=== PATIENT | male | born 1975 | race Caucasian/White ===

== ENCOUNTER 2017-04-20 10:37 | Emergency (ER) | payer OTHER ==
--- NOTE | 2017-04-20 11:22 | ED NURSING NOTES ---
Clinical Report - Nurses [facility] [address] [place] [address] 04/20/2017 10:38 Patient: AB CRUZ TRIAGE Triage time 1045. Acuity: LEVEL 4. Chief Complaint: (Pt in after doing heavy lifting at work and had a hernia develope rt groin area. Pt states pain and swelling were worse on and --but is less painful and not protruding as far). 10:45. --11:01 Keke Vergara R.N. 10:45 04/20/17. BP: 128/78. HR: 61. RR: 18. O2 saturation: 100%. Temp: 98.2 F. Pain level now: 05/21. --11:01 Keke Vergara R.N. Weight: 89.8 kg stated. Height/Length: 64 inches Per Patient. BMI: 34. --10:57 Keke Vergara R.N. Medications ASA Oral 81mg daily . --11:02 Keke Vergara R.N. Lipitor Oral 100mg, daily. --11:02 Keke Vergara R.N. Vit d. --11:03 Keke Vergara R.N. Naproxen Oral 500 mg, 2x a day as needed (uses 2-3 x/week ). --11:03 Keke Vergara R.N. Allergies Ibuprofen. (facial swelling (as a child) ) --11:02 Keke Vergara R.N. History Arrived by private vehicle. Historian: patient. Unaccompanied. Primary physician (maria teresa). Onset. (Sunday). SURGERY HX: No history of previous surgery. SOCIAL HX: Former smoker (quit 5 years). Alcohol use. (quit 3 years ago). History of drug use. (quit 15 years ago). --11:01 Keke Vergara R.N. PROBLEMS: Lumbar Strain. Back Pain. Heart Murmur. Hypertension. --11:01 Keke Vergara R.N. ADDITIONAL SURGERIES: no known surgeries. Interventions ID band on patient. To treatment room. --11:01 Keke Vergara R.N. PHYSICAL ASSESSMENT 10:45. Ambulatory to room. Patient gowned. GENERAL / NEURO / PSYCH: Alert. Oriented X 4. Appears in pain. RESPIRATORY: Respirations not labored. CVS: Capillary refill less than 2 seconds. GI / : ( right groin area swelling). SKIN: Skin is warm and dry. --11:05 Keke Vergara R.N. NURSING PROGRESS NOTES 10:45. Patient gowned. Head of bed elevated. Reassurance given. Patient identifiers checked. Call light placed in reach. Side rails up. Bed placed in lowest position. Patient ready for evaluation- chart flagged. --11:04 Keke Vergara R.N. DISPOSITION / DISCHARGE 11:35. Condition at departure: unchanged and stable. No learning barriers present. Discharge instructions provided and reviewed with the patient. Reviewed medication(s) (percocet). Reviewed referral to a surgeon. Patient verbalized understanding. Written instructions provided in Lithuanian. The patient was discharged home and unaccompanied at time of discharge. He left the Emergency Department ambulatory and via private vehicle. Patient driving. --11:43 Keke Vergara R.N. 11:41 04/20/17. BP: 111/76. HR: 58. RR: 16. O2 saturation: 100%. Temp: deferred. Pain level now: 05/21. --11:43 Keke Vergara R.N. Departure time: 1135. --11:43 Keke Vergara R.N. Locked/Released at 04/20/2017 11:43 by Keke Vergara R.N.
--- NOTE | 2017-04-20 11:22 | ED CLINICAL REPORT ---
Clinical Report - Physicians/Mid Levels [facility] [address] [place] [address] 04/20/2017 10:38 Patient: AB CRUZ Time Seen: 11:10. Arrived- By private vehicle. Historian- patient. HISTORY OF PRESENT ILLNESS Chief Complaint: ABDOMINAL PAIN. At its maximum, severity described as moderate. When seen in the E.D., severity described as moderate. Modifying factors- worsened by movement. Relieved by rest. (lifting heavy objects seems to have precipitated his symptoms). It is described as "pain" and dull. No radiation. It is described as located in the right pelvis. This started several days ago and is still present. It was gradual in onset and has been waxing/waning. No nausea, vomiting or diarrhea. (Pt in after doing heavy lifting at work and had a hernia develope rt groin area. Pt states pain and swelling were worse on Mond and Tues--but is less painful and not protruding as far). Similar symptoms previously: None. Recent medical care: The patient was seen recently in a clinic. Seen for similar symptoms. Diagnosis: (hernia). ( Seen at [facility] and diagnosed with hernia and has out pt ultrasound ordered). REVIEW OF SYSTEMS No constipation, black stools, hematemesis, difficulty with urination or pain with urination. No urinary frequency, bloody stools, fever, headache or sore throat. No chest pain, difficulty breathing, cough or back pain. All systems otherwise negative, except as recorded above. PAST HISTORY PCP: Dr Peña PROBLEMS: Lumbar Strain. Back Pain. Heart Murmur. Hypertension. Surgeries: No history of previous surgery. SOCIAL HISTORY Former smoker, end date 2011. Alcohol use. (quit 3 years ago). History of drug use quit 15 years ago. ADDITIONAL NOTES The nursing notes have been reviewed. PHYSICAL EXAM Vital Signs: 04/20/2017 10:45 BP: 128/78. HR: 61. RR: 18. O2 saturation: 100%. Temp: 98.2 F. Pain level now: 710. Appearance: Alert. Oriented X3. No acute distress. Eyes: Pupils equal, round and reactive to light. Eyes normal inspection. No scleral icterus or pale conjunctivae. ENT: Nose normal. Pharynx normal. Neck: Normal inspection. Neck supple. CVS: Normal heart rate and rhythm. Heart sounds normal. Pulses normal. Respiratory: No respiratory distress. Breath sounds normal. Abdomen: Soft. Mild tenderness in the right lower quadrant. No organomegaly. Small, tender mass present in the right lower quadrant (consistent with hernia - completely reducible; no skin erythema or ecchymosis). No pulsatile mass present. No rebound tenderness or guarding. Back: Normal inspection. No CVA tenderness. Skin: Skin warm and dry. Normal skin color. No rash. Normal skin turgor. Extremities: Extremities exhibit normal ROM. No lower extremity edema. Neuro: Oriented X 3. No motor deficit. No sensory deficit. LABS, X-RAYS, AND EKG Pulse Oximetry: 04/20/2017 10:45 O2 saturation: 100%. (FIO2 - room air). Interpretation: normal. PROGRESS AND PROCEDURES Course of Care: Most c/w nonincarcerated, nonstrangulated hernia. No indication for emergent surgery now. He has an out pt ultrasound scheduled by his pcp. I will provide pain relief (states currently pain is much better than several days ago and that "vicodin causes a headache", but requests prn pain med - percocet). I will refer to general surgery for out pt eval and keep off work for several days. Pt given signs and symptoms to watch for and return. Patient/family counseled. Old ED records reviewed. Disposition: Discharged. Condition: stable and improved. CLINICAL IMPRESSION Reducible right inguinal hernia. No recurrent hernia, obstruction or gangrene. INSTRUCTIONS Rest. Do not work for three days. Drink plenty of fluids. Warnings: Further evaluation is necessary in order to conduct further tests (You should have your ultrasound as ordered by your doctor). It is very important to follow up with a physician. SEDATIVE MEDICATION: You were given sedative medication during your visit. Do not drive or operate dangerous machinery. CONTROLLED SUBSTANCE WARNINGS. GENERAL WARNINGS: Return or contact your physician immediately if your condition worsens or changes unexpectedly, if not improving as expected, or if other problems arise. Your Current Medications: CONTINUE TAKING THE FOLLOWING MEDICATIONS: ASA Oral : 81mg daily. Lipitor Oral : 100mg daily. Naproxen Oral : 500 mg 2x a day, prn, uses 2-3 x/week. Vit d*. Prescription Medications: Percocet 5 mg/325 mg: take 1 tablet orally every 12 hours. Dispense five (5). No refill. Substitution is permissible. OTC Medications: Take acetaminophen (Tylenol, Datril, etc.) according to label instructions. Available over the counter. Follow-up with: Agustin Medina MD, General Surgeon, , [facility], [address] [place] [phone], [place] [phone] Follow up. Call for the next available appointment. Follow-up with: [facility], , , [address], , [place] [phone] Follow up. Call for the next available appointment. (Electronically signed by Agustin Andrew DO 04/20/2017 14:35)
--- NOTE | 2017-04-20 11:22 | ED CLINICAL REPORT ---
Clinical Report - Physicians/Mid Levels [facility] [address] [place] [address] 04/20/2017 10:38 Patient: AB CRUZ Time Seen: 11:10. Arrived- By private vehicle. Historian- patient. HISTORY OF PRESENT ILLNESS Chief Complaint: ABDOMINAL PAIN. At its maximum, severity described as moderate. When seen in the E.D., severity described as moderate. Modifying factors- worsened by movement. Relieved by rest. (lifting heavy objects seems to have precipitated his symptoms). It is described as "pain" and dull. No radiation. It is described as located in the right pelvis. This started several days ago and is still present. It was gradual in onset and has been waxing/waning. No nausea, vomiting or diarrhea. (Pt in after doing heavy lifting at work and had a hernia develope rt groin area. Pt states pain and swelling were worse on Mond and Tues--but is less painful and not protruding as far). Similar symptoms previously: None. Recent medical care: The patient was seen recently in a clinic. Seen for similar symptoms. Diagnosis: (hernia). ( Seen at [facility] and diagnosed with hernia and has out pt ultrasound ordered). REVIEW OF SYSTEMS No constipation, black stools, hematemesis, difficulty with urination or pain with urination. No urinary frequency, bloody stools, fever, headache or sore throat. No chest pain, difficulty breathing, cough or back pain. All systems otherwise negative, except as recorded above. PAST HISTORY PCP: Dr Peña PROBLEMS: Lumbar Strain. Back Pain. Heart Murmur. Hypertension. Surgeries: No history of previous surgery. SOCIAL HISTORY Former smoker, end date 2011. Alcohol use. (quit 3 years ago). History of drug use quit 15 years ago. ADDITIONAL NOTES The nursing notes have been reviewed. PHYSICAL EXAM Vital Signs: 04/20/2017 10:45 BP: 128/78. HR: 61. RR: 18. O2 saturation: 100%. Temp: 98.2 F. Pain level now: 710. Appearance: Alert. Oriented X3. No acute distress. Eyes: Pupils equal, round and reactive to light. Eyes normal inspection. No scleral icterus or pale conjunctivae. ENT: Nose normal. Pharynx normal. Neck: Normal inspection. Neck supple. CVS: Normal heart rate and rhythm. Heart sounds normal. Pulses normal. Respiratory: No respiratory distress. Breath sounds normal. Abdomen: Soft. Mild tenderness in the right lower quadrant. No organomegaly. Small, tender mass present in the right lower quadrant (consistent with hernia - completely reducible; no skin erythema or ecchymosis). No pulsatile mass present. No rebound tenderness or guarding. Back: Normal inspection. No CVA tenderness. Skin: Skin warm and dry. Normal skin color. No rash. Normal skin turgor. Extremities: Extremities exhibit normal ROM. No lower extremity edema. Neuro: Oriented X 3. No motor deficit. No sensory deficit. LABS, X-RAYS, AND EKG Pulse Oximetry: 04/20/2017 10:45 O2 saturation: 100%. (FIO2 - room air). Interpretation: normal. PROGRESS AND PROCEDURES Course of Care: Most c/w nonincarcerated, nonstrangulated hernia. No indication for emergent surgery now. He has an out pt ultrasound scheduled by his pcp. I will provide pain relief (states currently pain is much better than several days ago and that "vicodin causes a headache", but requests prn pain med - percocet). I will refer to general surgery for out pt eval and keep off work for several days. Pt given signs and symptoms to watch for and return. Patient/family counseled. Old ED records reviewed. Disposition: Discharged. Condition: stable and improved. CLINICAL IMPRESSION Reducible right inguinal hernia. No recurrent hernia, obstruction or gangrene. INSTRUCTIONS Rest. Do not work for three days. Drink plenty of fluids. Warnings: Further evaluation is necessary in order to conduct further tests (You should have your ultrasound as ordered by your doctor). It is very important to follow up with a physician. SEDATIVE MEDICATION: You were given sedative medication during your visit. Do not drive or operate dangerous machinery. CONTROLLED SUBSTANCE WARNINGS. GENERAL WARNINGS: Return or contact your physician immediately if your condition worsens or changes unexpectedly, if not improving as expected, or if other problems arise. Your Current Medications: CONTINUE TAKING THE FOLLOWING MEDICATIONS: ASA Oral : 81mg daily. Lipitor Oral : 100mg daily. Naproxen Oral : 500 mg 2x a day, prn, uses 2-3 x/week. Vit d*. Prescription Medications: Percocet 5 mg/325 mg: take 1 tablet orally every 12 hours. Dispense five (5). No refill. Substitution is permissible. OTC Medications: Take acetaminophen (Tylenol, Datril, etc.) according to label instructions. Available over the counter. Follow-up with: Agustin Medina MD, General Surgeon, , [facility], [address] [place] [phone], [place] [phone] Follow up. Call for the next available appointment. Follow-up with: [facility], , , [address], , [place] [phone] Follow up. Call for the next available appointment. (Electronically signed by Agustin Andrew DO 04/20/2017 14:35)
--- NOTE | 2017-04-20 14:35 | ED MAR SUMMARY ---
..... Medication Administration Record [facility] [address], [place] [id number] Patient: ANTHONY AB Sina Visit ID: [id number] 42y, M Weight: 89.8 kg Height/Length: 64 in BMI: 34 ALLERGIES: Ibuprofen
--- NOTE | 2017-04-20 14:35 | ED MED RECONCILIATION SUMMARY ---
Patient: AB CRUZ Medication Reconciliation Report [facility] VisitID: [id number] [address] [place] [address] 42y, M Registration Date/Time: 04/20/2017 Weight: 89.8 kg Height/Length: 64 in. BMI: 34.0 ALLERGIES: Ibuprofen The patient's Home Medications are listed below: CONTINUE TAKING THE FOLLOWING MEDICATIONS: ASA Oral 81mg daily Lipitor Oral 100mg, daily Naproxen Oral 500 mg, 2x a day, uses 2-3 x/week Vit d The source(s) of the original Home Medication information: Not obtained. The following Medications were given to the patient in the Emergency Department: None. The following Medications were prescribed to the patient: Take acetaminophen (Tylenol, Datril, etc.) according to label instructions. Available over the counter. -- Agustin Andrew DO Percocet 5 mg/325 mg: take 1 tablet orally every 12 hours. Dispense five (5). No refill. Substitution is permissible. -- Agustin Andrew DO
--- NOTE | 2017-04-20 14:35 | ED MAR SUMMARY ---
..... Medication Administration Record [facility] [address] [place], [place] [id number] Patient: ANTHONY AB Sina Visit ID: [id number] 42y, M Weight: 89.8 kg Height/Length: 64 in BMI: 34 ALLERGIES: Ibuprofen
--- NOTE | 2017-04-20 14:35 | ED MED RECONCILIATION SUMMARY ---
Patient: AB CRUZ Medication Reconciliation Report [facility] VisitID: [id number] [address] [place] [address] 42y, M Registration Date/Time: 04/20/2017 Weight: 89.8 kg Height/Length: 64 in. BMI: 34.0 ALLERGIES: Ibuprofen The patient's Home Medications are listed below: CONTINUE TAKING THE FOLLOWING MEDICATIONS: ASA Oral 81mg daily Lipitor Oral 100mg, daily Naproxen Oral 500 mg, 2x a day, uses 2-3 x/week Vit d The source(s) of the original Home Medication information: Not obtained. The following Medications were given to the patient in the Emergency Department: None. The following Medications were prescribed to the patient: Take acetaminophen (Tylenol, Datril, etc.) according to label instructions. Available over the counter. -- Agustin Andrew DO Percocet 5 mg/325 mg: take 1 tablet orally every 12 hours. Dispense five (5). No refill. Substitution is permissible. -- Agustin Andrew DO
--- NOTE | 2017-04-20 14:35 | ED DISCHARGE INSTRUCTIONS ---
Patient: AB CRUZ General Instructions [facility] VisitID: [id number] [address], [place] [id number] 42y, M Registration Date/Time: 04/20/2017 Reducible right inguinal hernia. No recurrent hernia, obstruction or gangrene. INSTRUCTIONS Rest. Do not work for three days. Drink plenty of fluids. Warnings: Further evaluation is necessary in order to conduct further tests (You should have your ultrasound as ordered by your doctor). It is very important to follow up with a physician. SEDATIVE MEDICATION: You were given sedative medication during your visit. Do not drive or operate dangerous machinery. CONTROLLED SUBSTANCE WARNINGS. GENERAL WARNINGS: Return or contact your physician immediately if your condition worsens or changes unexpectedly, if not improving as expected, or if other problems arise. Your Current Medications: CONTINUE TAKING THE FOLLOWING MEDICATIONS: ASA Oral : 81mg daily. Lipitor Oral : 100mg daily. Naproxen Oral : 500 mg 2x a day, prn, uses 2-3 x/week. Vit d*. Prescription Medications: Percocet 5 mg/325 mg: take 1 tablet orally every 12 hours. Dispense five (5). No refill. Substitution is permissible. OTC Medications: Take acetaminophen (Tylenol, Datril, etc.) according to label instructions. Available over the counter. Follow-up with: Agustin Medina MD, General Surgeon, , [facility], [address] [place] [address] [address] [phone] Follow up. Call for the next available appointment. Follow-up with: [facility], , , [address], , [place] [phone] Follow up. Call for the next available appointment. ADDITIONAL INFORMATION Hernia [Adult] A hernia is a bulge of the intestines or surrounding tissues through a tear in the muscle of the abdomen or groin. This may occur as a result of excessive coughing, heavy lifting or being overweight. It can also occur at the site of prior surgery. When a hernia first appears it may be painful due to stretching and tearing of the muscle fibers. When you lie down, the bulge should reduce in size or disappear completely. If it does not, and you are unable to flatten it with your hand, medical attention is needed at once. Home Care: Avoid heavy lifting and straining or any activities that cause pain in the hernia. Follow Up with your physician as directed by our staff. Get Prompt Medical Attention if any of the following occur: Increasing size of the hernia Increasing pain in the hernia A hernia that does not get smaller when you lie down Hardening of the hernia Abdominal swelling, fever or repeated vomiting Pain moves to the lower right abdomen (just below the waistline) or spreads to the back Oxycodone Hydrochloride, Acetaminophen Oral tablet What is this medicine? ACETAMINOPHEN; OXYCODONE (a set a COLIN salina fen; ox i KOE done) is a pain reliever. It is used to treat mild to moderate pain. How should I use this medicine? Take this medicine by mouth with a full glass of water. Follow the directions on the prescription label. Take your medicine at regular intervals. Do not take your medicine more often than directed. Talk to your collections attorney regarding the use of this medicine in children. Special care may be needed. Patients over 65 years old may have a stronger reaction and need a smaller dose. What side effects may I notice from receiving this medicine? Side effects that you should report to your doctor or health day care attendant as soon as possible: allergic reactions like skin rash, itching or hives, swelling of the face, lips, or tongue breathing difficulties, wheezing confusion light headedness or fainting spells severe stomach pain yellowing of the skin or the whites of the eyes Side effects that usually do not require medical attention (report to your doctor or health day care attendant if they continue or are bothersome): dizziness drowsiness nausea vomiting What may interact with this medicine? alcohol antihistamines barbiturates like amobarbital, butalbital, butabarbital, methohexital, pentobarbital, phenobarbital, thiopental, and secobarbital benztropine drugs for bladder problems like solifenacin, trospium, oxybutynin, tolterodine, hyoscyamine, and methscopolamine drugs for breathing problems like ipratropium and tiotropium drugs for certain stomach or intestine problems like propantheline, homatropine methylbromide, glycopyrrolate, atropine, belladonna, and dicyclomine general anesthetics like etomidate, ketamine, nitrous oxide, propofol, desflurane, enflurane, halothane, isoflurane, and sevoflurane medicines for depression, anxiety, or psychotic disturbances medicines for sleep muscle relaxants naltrexone narcotic medicines (opiates) for pain phenothiazines like perphenazine, thioridazine, chlorpromazine, mesoridazine, fluphenazine, prochlorperazine, promazine, and trifluoperazine scopolamine tramadol trihexyphenidyl What if I miss a dose? If you miss a dose, take it as soon as you can. If it is almost time for your next dose, take only that dose. Do not take double or extra doses. Where should I keep my medicine? Keep out of the reach of children. This medicine can be abused. Keep your medicine in a safe place to protect it from theft. Do not share this medicine with anyone. Selling or giving away this medicine is dangerous and against the law. Store at room temperature between 20 and 25 degrees C (68 and 77 degrees F). Keep container tightly closed. Protect from light. This medicine may cause accidental overdose and if it is taken by other adults, children, or pets. Flush any unused medicine down the toilet to reduce the chance of harm. Do not use the medicine after the expiration date. What should I tell my health care provider before I take this medicine? They need to know if you have any of these conditions: brain tumor Crohn's disease, inflammatory bowel disease, or ulcerative colitis drink more than 3 alcohol containing drinks per day drug abuse or addiction head injury heart or circulation problems kidney disease or problems going to the bathroom liver disease lung disease, asthma, or breathing problems an unusual or allergic reaction to acetaminophen, oxycodone, other opioid analgesics, other medicines, foods, dyes, or preservatives or trying to get breast-feeding What should I watch for while using this medicine? Tell your doctor or health day care attendant if your pain does not go away, if it gets worse, or if you have new or a different type of pain. You may develop tolerance to the medicine. Tolerance means that you will need a higher dose of the medication for pain relief. Tolerance is normal and is expected if you take this medicine for a long time. Do not suddenly stop taking your medicine because you may develop a severe reaction. Your body becomes used to the medicine. This does NOT mean you are addicted. Addiction is a behavior related to getting and using a drug for a non-medical reason. If you have pain, you have a medical reason to take pain medicine. Your doctor will tell you how much medicine to take. If your doctor wants you to stop the medicine, the dose will be slowly lowered over time to avoid any side effects. You may get drowsy or dizzy. Do not drive, use machinery, or do anything that needs mental alertness until you know how this medicine affects you. Do not stand or sit up quickly, especially if you are an older patient. This reduces the risk of dizzy or fainting spells. Alcohol may interfere with the effect of this medicine. Avoid alcoholic drinks. There are different types of narcotic medicines (opiates) for pain. If you take more than one type at the same time, you may have more side effects. Give your health care provider a list of all medicines you use. Your doctor will tell you how much medicine to take. Do not take more medicine than directed. Call emergency for help if you have problems breathing. The medicine will cause constipation. Try to have a bowel movement at least every 2 to 3 days. If you do not have a bowel movement for 3 days, call your doctor or health day care attendant. Do not take Tylenol (acetaminophen) or medicines that have acetaminophen with this medicine. Too much acetaminophen can be very dangerous. Many nonprescription medicines contain acetaminophen. Always read the labels carefully to avoid taking more acetaminophen. You have been given the following additional information: Hernia (Inguinal, Ventral, Umbilical) Oxycodone Hydrochloride, Acetaminophen Oral tablet Rest. Do not work for three days. (Electronically signed by Agustin Andrew DO 04/20/2017 14:35)
--- NOTE | 2017-04-20 14:35 | ED DISCHARGE INSTRUCTIONS ---
Patient: BA CRUZ General Instructions [facility] VisitID: [id number] [address] [place], [place] [id number] 42y, M Registration Date/Time: 04/20/2017 Reducible right inguinal hernia. No recurrent hernia, obstruction or gangrene. INSTRUCTIONS Rest. Do not work for three days. Drink plenty of fluids. Warnings: Further evaluation is necessary in order to conduct further tests (You should have your ultrasound as ordered by your doctor). It is very important to follow up with a physician. SEDATIVE MEDICATION: You were given sedative medication during your visit. Do not drive or operate dangerous machinery. CONTROLLED SUBSTANCE WARNINGS. GENERAL WARNINGS: Return or contact your physician immediately if your condition worsens or changes unexpectedly, if not improving as expected, or if other problems arise. Your Current Medications: CONTINUE TAKING THE FOLLOWING MEDICATIONS: ASA Oral : 81mg daily. Lipitor Oral : 100mg daily. Naproxen Oral : 500 mg 2x a day, prn, uses 2-3 x/week. Vit d*. Prescription Medications: Percocet 5 mg/325 mg: take 1 tablet orally every 12 hours. Dispense five (5). No refill. Substitution is permissible. OTC Medications: Take acetaminophen (Tylenol, Datril, etc.) according to label instructions. Available over the counter. Follow-up with: Agustin Medina MD, General Surgeon, , [facility], [address] [place] [address] [address] [place] [phone] Follow up. Call for the next available appointment. Follow-up with: [facility], , , [address], , [place] [phone] Follow up. Call for the next available appointment. ADDITIONAL INFORMATION Hernia [Adult] A hernia is a bulge of the intestines or surrounding tissues through a tear in the muscle of the abdomen or groin. This may occur as a result of excessive coughing, heavy lifting or being overweight. It can also occur at the site of prior surgery. When a hernia first appears it may be painful due to stretching and tearing of the muscle fibers. When you lie down, the bulge should reduce in size or disappear completely. If it does not, and you are unable to flatten it with your hand, medical attention is needed at once. Home Care: Avoid heavy lifting and straining or any activities that cause pain in the hernia. Follow Up with your physician as directed by our staff. Get Prompt Medical Attention if any of the following occur: Increasing size of the hernia Increasing pain in the hernia A hernia that does not get smaller when you lie down Hardening of the hernia Abdominal swelling, fever or repeated vomiting Pain moves to the lower right abdomen (just below the waistline) or spreads to the back Oxycodone Hydrochloride, Acetaminophen Oral tablet What is this medicine? ACETAMINOPHEN; OXYCODONE (a set a COLIN salina fen; ox i KOE done) is a pain reliever. It is used to treat mild to moderate pain. How should I use this medicine? Take this medicine by mouth with a full glass of water. Follow the directions on the prescription label. Take your medicine at regular intervals. Do not take your medicine more often than directed. Talk to your railroad car truck builder regarding the use of this medicine in children. Special care may be needed. Patients over 65 years old may have a stronger reaction and need a smaller dose. What side effects may I notice from receiving this medicine? Side effects that you should report to your doctor or health skin care technician as soon as possible: allergic reactions like skin rash, itching or hives, swelling of the face, lips, or tongue breathing difficulties, wheezing confusion light headedness or fainting spells severe stomach pain yellowing of the skin or the whites of the eyes Side effects that usually do not require medical attention (report to your doctor or health skin care technician if they continue or are bothersome): dizziness drowsiness nausea vomiting What may interact with this medicine? alcohol antihistamines barbiturates like amobarbital, butalbital, butabarbital, methohexital, pentobarbital, phenobarbital, thiopental, and secobarbital benztropine drugs for bladder problems like solifenacin, trospium, oxybutynin, tolterodine, hyoscyamine, and methscopolamine drugs for breathing problems like ipratropium and tiotropium drugs for certain stomach or intestine problems like propantheline, homatropine methylbromide, glycopyrrolate, atropine, belladonna, and dicyclomine general anesthetics like etomidate, ketamine, nitrous oxide, propofol, desflurane, enflurane, halothane, isoflurane, and sevoflurane medicines for depression, anxiety, or psychotic disturbances medicines for sleep muscle relaxants naltrexone narcotic medicines (opiates) for pain phenothiazines like perphenazine, thioridazine, chlorpromazine, mesoridazine, fluphenazine, prochlorperazine, promazine, and trifluoperazine scopolamine tramadol trihexyphenidyl What if I miss a dose? If you miss a dose, take it as soon as you can. If it is almost time for your next dose, take only that dose. Do not take double or extra doses. Where should I keep my medicine? Keep out of the reach of children. This medicine can be abused. Keep your medicine in a safe place to protect it from theft. Do not share this medicine with anyone. Selling or giving away this medicine is dangerous and against the law. Store at room temperature between 20 and 25 degrees C (68 and 77 degrees F). Keep container tightly closed. Protect from light. This medicine may cause accidental overdose and if it is taken by other adults, children, or pets. Flush any unused medicine down the toilet to reduce the chance of harm. Do not use the medicine after the expiration date. What should I tell my health care provider before I take this medicine? They need to know if you have any of these conditions: brain tumor Crohn's disease, inflammatory bowel disease, or ulcerative colitis drink more than 3 alcohol containing drinks per day drug abuse or addiction head injury heart or circulation problems kidney disease or problems going to the bathroom liver disease lung disease, asthma, or breathing problems an unusual or allergic reaction to acetaminophen, oxycodone, other opioid analgesics, other medicines, foods, dyes, or preservatives or trying to get breast-feeding What should I watch for while using this medicine? Tell your doctor or health skin care technician if your pain does not go away, if it gets worse, or if you have new or a different type of pain. You may develop tolerance to the medicine. Tolerance means that you will need a higher dose of the medication for pain relief. Tolerance is normal and is expected if you take this medicine for a long time. Do not suddenly stop taking your medicine because you may develop a severe reaction. Your body becomes used to the medicine. This does NOT mean you are addicted. Addiction is a behavior related to getting and using a drug for a non-medical reason. If you have pain, you have a medical reason to take pain medicine. Your doctor will tell you how much medicine to take. If your doctor wants you to stop the medicine, the dose will be slowly lowered over time to avoid any side effects. You may get drowsy or dizzy. Do not drive, use machinery, or do anything that needs mental alertness until you know how this medicine affects you. Do not stand or sit up quickly, especially if you are an older patient. This reduces the risk of dizzy or fainting spells. Alcohol may interfere with the effect of this medicine. Avoid alcoholic drinks. There are different types of narcotic medicines (opiates) for pain. If you take more than one type at the same time, you may have more side effects. Give your health care provider a list of all medicines you use. Your doctor will tell you how much medicine to take. Do not take more medicine than directed. Call emergency for help if you have problems breathing. The medicine will cause constipation. Try to have a bowel movement at least every 2 to 3 days. If you do not have a bowel movement for 3 days, call your doctor or health skin care technician. Do not take Tylenol (acetaminophen) or medicines that have acetaminophen with this medicine. Too much acetaminophen can be very dangerous. Many nonprescription medicines contain acetaminophen. Always read the labels carefully to avoid taking more acetaminophen. You have been given the following additional information: Hernia (Inguinal, Ventral, Umbilical) Oxycodone Hydrochloride, Acetaminophen Oral tablet Rest. Do not work for three days. (Electronically signed by Agustin Andrew DO 04/20/2017 14:35)
== END 2017-04-20 11:35 | disposition home or self-care (01) ==
LOC: ED SRH 10:37
DX: K40.90 Unilateral inguinal hernia, without obstruction or gangrene, not specified as recurrent (principal); I10 Essential (primary) hypertension

== ENCOUNTER 2017-05-07 10:23 | Emergency (ER) | payer OTHER ==
--- NOTE | 2017-05-07 12:11 | ED CLINICAL REPORT ---
Clinical Report - Physicians/Mid Levels [facility] [address] [place] [address] 05/07/2017 10:23 Patient: AB CRUZ Time Seen: 10:26. Arrived- By private vehicle. Historian- patient. HISTORY OF PRESENT ILLNESS Chief Complaint: R groin pain. At its maximum, severity described as severe. When seen in the E.D., severity described as moderate. Modifying factors- (standing and straining worse than the pain; supine position improves). This started about 2 months ago, worse over the past few days and is still present. It is described as "pain" and it is described as located in the right pelvis. No nausea, loss of appetite, vomiting or diarrhea. Similar symptoms previously: Recent medical care: ( Patient states he was seen previously for his hernia, and has a very physical job. He is waiting for his insurance to approve the hernia repair. He states that the hernia does reduce spontaneously, and tonight he is just here for pain control.). Not recently seen/assessed. REVIEW OF SYSTEMS No constipation, black stools, hematemesis, difficulty with urination or pain with urination. No urinary frequency, bloody stools, fever, headache or sore throat. No blurred vision, chest pain, difficulty breathing, cough or joint pain. No skin rash, chills or back pain. All systems otherwise negative, except as recorded above. PAST HISTORY Problems: Lumbar Strain. Heart Murmur. Hypertension. Additional Surgeries: no known surgeries. Medications: ASA Oral 81mg daily . Lipitor Oral 100mg, daily. Naproxen Oral 500 mg, 2x a day as needed (uses 2-3 x/week ). Vit d. Allergies: Ibuprofen. (facial swelling (as a child) ). SOCIAL HISTORY Former smoker. Alcohol use. Patient is a recovering alcoholic. History of drug use. Is a recovering addict. ADDITIONAL NOTES The nursing notes have been reviewed. PHYSICAL EXAM Vital Signs: 05/07/2017 10:30 BP: 119/80. HR: 65. RR: 18. O2 saturation: 97%. Temp: 98.1 F. Pain level now: 08/21. Have been reviewed. Appearance: Alert. Oriented X3. No acute distress. (patient appears moderately uncomfortable.). Eyes: Pupils equal, round and reactive to light. Eyes normal inspection. ENT: Nose normal. Neck: Normal inspection. CVS: Normal heart rate and rhythm. Heart sounds normal. Pulses normal. Respiratory: No respiratory distress. Breath sounds normal. Abdomen: Soft and nontender. Back: Normal inspection. : Normal genitalia. No tenderness present or scrotal swelling. (Patient has tenderness in his right inguinal area. There is no palpable hernia though a defect is palpable. No mass. No discoloration of the overlying skin. Testicles and scrotum are symmetrical bilaterally.). Skin: Skin warm and dry. Normal skin color. No rash. Normal skin turgor. Extremities: Extremities exhibit normal ROM. No lower extremity edema. Neuro: (Neurologic exam is grossly intact.). LABS, X-RAYS, AND EKG Pulse Oximetry: 05/07/2017 10:30 O2 saturation: 97%. (FIO2 - room air). Interpretation: normal. PROGRESS AND PROCEDURES Course of Care: Patient's hernia was already reduced at the time of my examination, and patient had already had specialty follow-up for this problem. I did treat him symptomatically with Dilaudid and Toradol. I did not feel that any emergent workup was indicated in the emergency department at this time. Patient counseled in person regarding the patient's stable condition, diagnosis and need for follow-up. Old medical records reviewed. Disposition: Discharged in improved condition. CLINICAL IMPRESSION Reducible and recurrent right inguinal hernia. No obstruction. INSTRUCTIONS Do not work today. Drink plenty of fluids. Warnings: GENERAL WARNINGS: Return or contact your physician immediately if your condition worsens or changes unexpectedly, if not improving as expected, or if other problems arise. Prescription Medications: Hydrocodone/APAP 5mg / 325mg: take 1-2 orally every 4 hours as needed for pain. Dispense twenty-five (25). No refill. Zofran (orally disintegrating tablets) 4 mg: take 1-2 orally every 6 hours as needed for nausea. Dispense twenty (20). No refill. Substitution is permissible. Understanding of the discharge instructions verbalized by patient. Follow-up with: Evan Martino MD, General Surgeon, , [facility], [address] [place] [address] Follow up. Call for the next available appointment. Follow-up with: Tylor Cruz M.D., Occupational Medicine, , [facility], [address] [place] [address] Follow up. Call for the next available appointment. Reason for referral: Management of pain from work-related hernia until L&I approves surgery. (Electronically signed by Elisa Cam MD 05/16/2017 13:59)
--- NOTE | 2017-05-07 12:11 | ED NURSING NOTES ---
Clinical Report - Nurses [facility] [address] [place] [address] 05/07/2017 10:23 Patient: AB CRUZ TRIAGE Triage time 1030. Acuity: LEVEL 3. Chief Complaint: (was here for rt inguinal hernia - was here on with same . Pt states he has had problems with it popping in and out all weekend). --10:38 Keke Vergara R.N. 10:30 05/07/17. BP: 119/80. HR: 65. RR: 18. O2 saturation: 97%. Temp: 98.1 F. Pain level now: 08/21. --10:38 Keke Vergara R.N. ( last ate 1600 yesterday, last liquids- 1 glass of water at 0900). --10:39 Keke Vergara R.N. Weight: 88.4 kg stated. Height/Length: 64 inches Per Patient. BMI: 33.5. --10:36 Keke Vergara R.N. Medications ASA Oral 81mg daily . Lipitor Oral 100mg, daily. Naproxen Oral 500 mg, 2x a day as needed (uses 2-3 x/week ). Vit d. --12:45 Keke Vergara R.N. Allergies Ibuprofen. (facial swelling (as a child) ) --12:45 Keke Vergara R.N. History Arrived by private vehicle. Historian: patient. Accompanied by friend. Primary physician (maria teresa). Able to void. SURGERY HX: No history of previous surgery. SOCIAL HX: Smoker- current status unknown (Former smoker (quit 5 years). Alcohol use. (quit 3 years ago). History of drug use. (quit 15 years ago). --10:38 Keke Vergara R.N. PROBLEMS: Hernia. Lumbar Strain. Back Pain. Heart Murmur. Hypertension. --10:36 Keke Vergara R.N. ADDITIONAL SURGERIES: no known surgeries. Interventions ID band on patient. To treatment room. --10:38 Keke Vergara R.N. PHYSICAL ASSESSMENT 10:30. Ambulatory to room. Patient gowned. GENERAL / NEURO / PSYCH: Alert. Oriented X 4. Appears in pain. RESPIRATORY: Respirations not labored. CVS: Capillary refill less than 2 seconds. SKIN: Skin is warm and dry. --10:39 Keke Vergara R.N. NURSING PROGRESS NOTES 10:30. Patient gowned. Head of bed elevated. Reassurance given. Patient identifiers checked. Call light placed in reach. Side rails up. Bed placed in lowest position. Patient ready for evaluation- chart flagged. --10:38 Keke Vergara R.N. 11:29 05/07/2017 Toradol (Ketorolac Tromethamine) IM 60 mg given. Given in the right ventral gluteus. Allergies verified and confirmed 5 rights. --11:34 Keke Vergara R.N. 11:29 05/07/2017 Dilaudid (HYDROmorphone HCl PF) IM 2 mg given. Given in the left ventral gluteus. --11:34 Keke Vergara R.N. 12:00 Pt states pain is 4/10 resting comfortalby, friend at bedside. --12:03 Keke Vergara R.N. DISPOSITION / DISCHARGE 12:10. Condition at departure: improved and stable. No learning barriers present. Discharge instructions provided and reviewed with the patient. Reviewed medication(s) (motrin, vicodin, zofran). Treatments reviewed (ice, rest). Reviewed referral to a surgeon. Patient verbalized understanding. Written instructions provided in Cambodian. The patient was discharged home and accompanied by abe teacher. He left the Emergency Department ambulatory and via private vehicle. Media Senior Recruiter driving. --12:44 Keke Vergara R.N. 12:09 05/07/17. BP: 117/68. HR: 58. RR: 16. O2 saturation: 98% on room air. Temp: deferred. Pain level now: 4/10. --12:44 Keke Vergara R.N. Locked/Released at 05/07/2017 12:46 by Keke Vergara R.N.
--- NOTE | 2017-05-07 12:11 | ED NURSING NOTES ---
Clinical Report - Nurses [facility] [address] [place] [address] 05/07/2017 10:23 Patient: AB CRUZ TRIAGE Triage time 1030. Acuity: LEVEL 3. Chief Complaint: (was here for rt inguinal hernia - was here on with same . Pt states he has had problems with it popping in and out all weekend). --10:38 Keke Vergara R.N. 10:30 05/07/17. BP: 119/80. HR: 65. RR: 18. O2 saturation: 97%. Temp: 98.1 F. Pain level now: 08/21. --10:38 Keke Vergara R.N. ( last ate 1600 yesterday, last liquids- 1 glass of water at 0900). --10:39 Keke Vergara R.N. Weight: 88.4 kg stated. Height/Length: 64 inches Per Patient. BMI: 33.5. --10:36 Keke Vergara R.N. Medications ASA Oral 81mg daily . Lipitor Oral 100mg, daily. Naproxen Oral 500 mg, 2x a day as needed (uses 2-3 x/week ). Vit d. --12:45 Keke Vergara R.N. Allergies Ibuprofen. (facial swelling (as a child) ) --12:45 Keke Vergara R.N. History Arrived by private vehicle. Historian: patient. Accompanied by friend. Primary physician (maria teresa). Able to void. SURGERY HX: No history of previous surgery. SOCIAL HX: Smoker- current status unknown (Former smoker (quit 5 years). Alcohol use. (quit 3 years ago). History of drug use. (quit 15 years ago). --10:38 Keke Vergara R.N. PROBLEMS: Hernia. Lumbar Strain. Back Pain. Heart Murmur. Hypertension. --10:36 Keke Vergara R.N. ADDITIONAL SURGERIES: no known surgeries. Interventions ID band on patient. To treatment room. --10:38 Keke Vergara R.N. PHYSICAL ASSESSMENT 10:30. Ambulatory to room. Patient gowned. GENERAL / NEURO / PSYCH: Alert. Oriented X 4. Appears in pain. RESPIRATORY: Respirations not labored. CVS: Capillary refill less than 2 seconds. SKIN: Skin is warm and dry. --10:39 Keke Vergara R.N. NURSING PROGRESS NOTES 10:30. Patient gowned. Head of bed elevated. Reassurance given. Patient identifiers checked. Call light placed in reach. Side rails up. Bed placed in lowest position. Patient ready for evaluation- chart flagged. --10:38 Keke Vergara R.N. 11:29 05/07/2017 Toradol (Ketorolac Tromethamine) IM 60 mg given. Given in the right ventral gluteus. Allergies verified and confirmed 5 rights. --11:34 Keke Vergara R.N. 11:29 05/07/2017 Dilaudid (HYDROmorphone HCl PF) IM 2 mg given. Given in the left ventral gluteus. --11:34 Keke Vergara R.N. 12:00 Pt states pain is 4/10 resting comfortalby, friend at bedside. --12:03 Keke Vergara R.N. DISPOSITION / DISCHARGE 12:10. Condition at departure: improved and stable. No learning barriers present. Discharge instructions provided and reviewed with the patient. Reviewed medication(s) (motrin, vicodin, zofran). Treatments reviewed (ice, rest). Reviewed referral to a surgeon. Patient verbalized understanding. Written instructions provided in Belgian. The patient was discharged home and accompanied by hooker off. He left the Emergency Department ambulatory and via private vehicle. Cash Shortage Investigator driving. --12:44 Keke Vergara R.N. 12:09 05/07/17. BP: 117/68. HR: 58. RR: 16. O2 saturation: 98% on room air. Temp: deferred. Pain level now: 4/10. --12:44 Keke Vergara R.N. Locked/Released at 05/07/2017 12:46 by Keke Vergara R.N.
--- NOTE | 2017-05-07 12:11 | ED ORDER SUMMARY ---
..... Patient: AB CRUZ OrderSheet [facility] VisitID: [id number] [address] [place] [address] 42y, M Registration Date/Time: 05/07/2017 ORDER SHEET Weight: 88.4 kg (stated) Allergies: Ibuprofen GENERAL ORDERS: MEDICATION ORDERS: Dilaudid IM 2 mg (HIGH ALERT MEDICATION, NOW) (11:16 05/07/2017 Mariely JANSEN) (Ack 11:27 DDean R.N.) (11:34 DDean R.N.) Toradol IM 60 mg (NOW) (11:16 05/07/2017 Mariely JANSEN) (Ack 11:27 DDean R.N.) (11:34 DDean R.N.) IV FLUIDS: ORDER SHEET NOTES: [Electronically signed by Keke Vergara R.N. (12:46 05/07/2017)] [Electronically signed by Elisa Cam MD (13:59 05/16/2017)] [Electronically locked/signed by Keke Vergara R.N. (12:46 05/07/2017)]
--- NOTE | 2017-05-07 12:11 | ED CLINICAL REPORT ---
Clinical Report - Physicians/Mid Levels [facility] [address] [place] [address] 05/07/2017 10:23 Patient: AB CRUZ Time Seen: 10:26. Arrived- By private vehicle. Historian- patient. HISTORY OF PRESENT ILLNESS Chief Complaint: R groin pain. At its maximum, severity described as severe. When seen in the E.D., severity described as moderate. Modifying factors- (standing and straining worse than the pain; supine position improves). This started about 2 months ago, worse over the past few days and is still present. It is described as "pain" and it is described as located in the right pelvis. No nausea, loss of appetite, vomiting or diarrhea. Similar symptoms previously: Recent medical care: ( Patient states he was seen previously for his hernia, and has a very physical job. He is waiting for his insurance to approve the hernia repair. He states that the hernia does reduce spontaneously, and tonight he is just here for pain control.). Not recently seen/assessed. REVIEW OF SYSTEMS No constipation, black stools, hematemesis, difficulty with urination or pain with urination. No urinary frequency, bloody stools, fever, headache or sore throat. No blurred vision, chest pain, difficulty breathing, cough or joint pain. No skin rash, chills or back pain. All systems otherwise negative, except as recorded above. PAST HISTORY Problems: Lumbar Strain. Heart Murmur. Hypertension. Additional Surgeries: no known surgeries. Medications: ASA Oral 81mg daily . Lipitor Oral 100mg, daily. Naproxen Oral 500 mg, 2x a day as needed (uses 2-3 x/week ). Vit d. Allergies: Ibuprofen. (facial swelling (as a child) ). SOCIAL HISTORY Former smoker. Alcohol use. Patient is a recovering alcoholic. History of drug use. Is a recovering addict. ADDITIONAL NOTES The nursing notes have been reviewed. PHYSICAL EXAM Vital Signs: 05/07/2017 10:30 BP: 119/80. HR: 65. RR: 18. O2 saturation: 97%. Temp: 98.1 F. Pain level now: 08/21. Have been reviewed. Appearance: Alert. Oriented X3. No acute distress. (patient appears moderately uncomfortable.). Eyes: Pupils equal, round and reactive to light. Eyes normal inspection. ENT: Nose normal. Neck: Normal inspection. CVS: Normal heart rate and rhythm. Heart sounds normal. Pulses normal. Respiratory: No respiratory distress. Breath sounds normal. Abdomen: Soft and nontender. Back: Normal inspection. : Normal genitalia. No tenderness present or scrotal swelling. (Patient has tenderness in his right inguinal area. There is no palpable hernia though a defect is palpable. No mass. No discoloration of the overlying skin. Testicles and scrotum are symmetrical bilaterally.). Skin: Skin warm and dry. Normal skin color. No rash. Normal skin turgor. Extremities: Extremities exhibit normal ROM. No lower extremity edema. Neuro: (Neurologic exam is grossly intact.). LABS, X-RAYS, AND EKG Pulse Oximetry: 05/07/2017 10:30 O2 saturation: 97%. (FIO2 - room air). Interpretation: normal. PROGRESS AND PROCEDURES Course of Care: Patient's hernia was already reduced at the time of my examination, and patient had already had specialty follow-up for this problem. I did treat him symptomatically with Dilaudid and Toradol. I did not feel that any emergent workup was indicated in the emergency department at this time. Patient counseled in person regarding the patient's stable condition, diagnosis and need for follow-up. Old medical records reviewed. Disposition: Discharged in improved condition. CLINICAL IMPRESSION Reducible and recurrent right inguinal hernia. No obstruction. INSTRUCTIONS Do not work today. Drink plenty of fluids. Warnings: GENERAL WARNINGS: Return or contact your physician immediately if your condition worsens or changes unexpectedly, if not improving as expected, or if other problems arise. Prescription Medications: Hydrocodone/APAP 5mg / 325mg: take 1-2 orally every 4 hours as needed for pain. Dispense twenty-five (25). No refill. Zofran (orally disintegrating tablets) 4 mg: take 1-2 orally every 6 hours as needed for nausea. Dispense twenty (20). No refill. Substitution is permissible. Understanding of the discharge instructions verbalized by patient. Follow-up with: Evan Martino MD, General Surgeon, , [facility], [address] [address] Follow up. Call for the next available appointment. Follow-up with: Tylor Cruz M.D., Occupational Medicine, , [facility], [address] [place] [address] Follow up. Call for the next available appointment. Reason for referral: Management of pain from work-related hernia until L&I approves surgery. (Electronically signed by Elisa Cam MD 05/16/2017 13:59)
--- NOTE | 2017-05-07 12:11 | ED ORDER SUMMARY ---
..... Patient: AB CRUZ OrderSheet [facility] VisitID: [id number] [address] [place] [address] 42y, M Registration Date/Time: 05/07/2017 ORDER SHEET Weight: 88.4 kg (stated) Allergies: Ibuprofen GENERAL ORDERS: MEDICATION ORDERS: Dilaudid IM 2 mg (HIGH ALERT MEDICATION, NOW) (11:16 05/07/2017 Mariely JANSEN) (Ack 11:27 DDean R.N.) (11:34 DDean R.N.) Toradol IM 60 mg (NOW) (11:16 05/07/2017 Mariely JANSEN) (Ack 11:27 DDean R.N.) (11:34 DDean R.N.) IV FLUIDS: ORDER SHEET NOTES: [Electronically signed by Keke Vergara R.N. (12:46 05/07/2017)] [Electronically signed by Elisa Cam MD (13:59 05/16/2017)] [Electronically locked/signed by Keke Vergara R.N. (12:46 05/07/2017)]
--- NOTE | 2017-05-16 14:00 | ED MAR SUMMARY ---
..... Medication Administration Record [facility] [address] [place] [address] Patient: AB CRUZ Visit ID: [id number] 42y, M Weight: 88.4 kg Height/Length: 64 in BMI: 33.5 ALLERGIES: Ibuprofen Given 11:05/07/2017 Keke Vergara RGeorgiN. Medication Administered: DILAUDID [IM] (HYDROMORPHONE HCL PF), Dose: 2 mg IM. Medication Ordered: Dilaudid IM 2 mg (HIGH ALERT MEDICATION, NOW). Given 11:05/07/2017 Keke Vergara, RGeorgiN. Medication Administered: TORADOL [IM] (KETOROLAC TROMETHAMINE), Dose: 60 mg IM. Medication Ordered: Toradol IM 60 mg (NOW).
--- NOTE | 2017-05-16 14:00 | ED DISCHARGE INSTRUCTIONS ---
Patient: AB CRUZ General Instructions [facility] VisitID: [id number] [address] [place] [address] 42y, M Registration Date/Time: 05/07/2017 Reducible and recurrent right inguinal hernia. No obstruction. INSTRUCTIONS Do not work today. Drink plenty of fluids. Warnings: GENERAL WARNINGS: Return or contact your physician immediately if your condition worsens or changes unexpectedly, if not improving as expected, or if other problems arise. Prescription Medications: Hydrocodone/APAP 5mg / 325mg: take 1-2 orally every 4 hours as needed for pain. Dispense twenty-five (25). No refill. Zofran (orally disintegrating tablets) 4 mg: take 1-2 orally every 6 hours as needed for nausea. Dispense twenty (20). No refill. Substitution is permissible. Understanding of the discharge instructions verbalized by patient. Follow-up with: Evan Martino MD, General Surgeon, , [facility], [address] [place] [address] Follow up. Call for the next available appointment. Follow-up with: Tylor Cruz M.D., Occupational Medicine, , [facility], [address] [place] [address] Follow up. Call for the next available appointment. Reason for referral: Management of pain from work-related hernia until L&I approves surgery. ADDITIONAL INFORMATION Hernia [Adult] A hernia is a bulge of the intestines or surrounding tissues through a tear in the muscle of the abdomen or groin. This may occur as a result of excessive coughing, heavy lifting or being overweight. It can also occur at the site of prior surgery. When a hernia first appears it may be painful due to stretching and tearing of the muscle fibers. When you lie down, the bulge should reduce in size or disappear completely. If it does not, and you are unable to flatten it with your hand, medical attention is needed at once. Home Care: Avoid heavy lifting and straining or any activities that cause pain in the hernia. Follow Up with your physician as directed by our staff. Get Prompt Medical Attention if any of the following occur: Increasing size of the hernia Increasing pain in the hernia A hernia that does not get smaller when you lie down Hardening of the hernia Abdominal swelling, fever or repeated vomiting Pain moves to the lower right abdomen (just below the waistline) or spreads to the back You have been given the following additional information: Hernia (Inguinal, Ventral, Umbilical) Do not work today. (Electronically signed by Elisa Cam MD 05/16/2017 13:59)
--- NOTE | 2017-05-16 14:00 | ED MED RECONCILIATION SUMMARY ---
Patient: AB CRUZ Medication Reconciliation Report [facility] VisitID: [id number] [address] [place] [address] 42y, M Registration Date/Time: 05/07/2017 Weight: 88.4 kg Height/Length: 64 in. BMI: 33.5 ALLERGIES: Ibuprofen The patient's Home Medications are listed below: THE FOLLOWING MEDICATIONS NEED TO BE RECONCILED: ASA Oral 81mg daily Lipitor Oral 100mg, daily Naproxen Oral 500 mg, 2x a day, uses 2-3 x/week Vit d The source(s) of the original Home Medication information: Not obtained. The following Medications were given to the patient in the Emergency Department: Toradol [IM] IM 60 mg, administered: 05/07/2017 11:29:00 AM Dilaudid [IM] IM 2 mg, administered: 05/07/2017 11:29:00 AM The following Medications were prescribed to the patient: Hydrocodone/APAP 5mg / 325mg: take 1-2 orally every 4 hours as needed for pain. Dispense twenty-five (25). No refill. -- Elisa Cam MD Zofran (orally disintegrating tablets) 4 mg: take 1-2 orally every 6 hours as needed for nausea. Dispense twenty (20). No refill. Substitution is permissible. -- Elisa Cam MD
--- NOTE | 2017-05-16 14:00 | ED DISCHARGE INSTRUCTIONS ---
Patient: AB CRUZ General Instructions [facility] VisitID: [id number] [address] [place] [address] 42y, M Registration Date/Time: 05/07/2017 Reducible and recurrent right inguinal hernia. No obstruction. INSTRUCTIONS Do not work today. Drink plenty of fluids. Warnings: GENERAL WARNINGS: Return or contact your physician immediately if your condition worsens or changes unexpectedly, if not improving as expected, or if other problems arise. Prescription Medications: Hydrocodone/APAP 5mg / 325mg: take 1-2 orally every 4 hours as needed for pain. Dispense twenty-five (25). No refill. Zofran (orally disintegrating tablets) 4 mg: take 1-2 orally every 6 hours as needed for nausea. Dispense twenty (20). No refill. Substitution is permissible. Understanding of the discharge instructions verbalized by patient. Follow-up with: Evan Martino MD, General Surgeon, , [facility], [address] [place] [address] Follow up. Call for the next available appointment. Follow-up with: Tylor Cruz M.D., Occupational Medicine, , [facility], [address] [place] [address] Follow up. Call for the next available appointment. Reason for referral: Management of pain from work-related hernia until L&I approves surgery. ADDITIONAL INFORMATION Hernia [Adult] A hernia is a bulge of the intestines or surrounding tissues through a tear in the muscle of the abdomen or groin. This may occur as a result of excessive coughing, heavy lifting or being overweight. It can also occur at the site of prior surgery. When a hernia first appears it may be painful due to stretching and tearing of the muscle fibers. When you lie down, the bulge should reduce in size or disappear completely. If it does not, and you are unable to flatten it with your hand, medical attention is needed at once. Home Care: Avoid heavy lifting and straining or any activities that cause pain in the hernia. Follow Up with your physician as directed by our staff. Get Prompt Medical Attention if any of the following occur: Increasing size of the hernia Increasing pain in the hernia A hernia that does not get smaller when you lie down Hardening of the hernia Abdominal swelling, fever or repeated vomiting Pain moves to the lower right abdomen (just below the waistline) or spreads to the back You have been given the following additional information: Hernia (Inguinal, Ventral, Umbilical) Do not work today. (Electronically signed by Elisa Cam MD 05/16/2017 13:59)
--- NOTE | 2017-05-16 14:00 | ED MED RECONCILIATION SUMMARY ---
Patient: AB CRUZ Medication Reconciliation Report [facility] VisitID: [id number] [address] [place] [address] 42y, M Registration Date/Time: 05/07/2017 Weight: 88.4 kg Height/Length: 64 in. BMI: 33.5 ALLERGIES: Ibuprofen The patient's Home Medications are listed below: THE FOLLOWING MEDICATIONS NEED TO BE RECONCILED: ASA Oral 81mg daily Lipitor Oral 100mg, daily Naproxen Oral 500 mg, 2x a day, uses 2-3 x/week Vit d The source(s) of the original Home Medication information: Not obtained. The following Medications were given to the patient in the Emergency Department: Toradol [IM] IM 60 mg, administered: 05/07/2017 11:29:00 AM Dilaudid [IM] IM 2 mg, administered: 05/07/2017 11:29:00 AM The following Medications were prescribed to the patient: Hydrocodone/APAP 5mg / 325mg: take 1-2 orally every 4 hours as needed for pain. Dispense twenty-five (25). No refill. -- Elisa Cam MD Zofran (orally disintegrating tablets) 4 mg: take 1-2 orally every 6 hours as needed for nausea. Dispense twenty (20). No refill. Substitution is permissible. -- Elisa Cam MD
--- NOTE | 2017-05-16 14:00 | ED MAR SUMMARY ---
..... Medication Administration Record [facility] [address] [place] [address] Patient: AB CRUZ Visit ID: [id number] 42y, M Weight: 88.4 kg Height/Length: 64 in BMI: 33.5 ALLERGIES: Ibuprofen Given 11:05/07/2017 Keke Vergara RGeorgiN. Medication Administered: DILAUDID [IM] (HYDROMORPHONE HCL PF), Dose: 2 mg IM. Medication Ordered: Dilaudid IM 2 mg (HIGH ALERT MEDICATION, NOW). Given 11:05/07/2017 Keke Vergara, RGeorgiN. Medication Administered: TORADOL [IM] (KETOROLAC TROMETHAMINE), Dose: 60 mg IM. Medication Ordered: Toradol IM 60 mg (NOW).
[2017-06-01] MEDS ORDERED: ASPIRIN ADULT L81 M1 PO (12:33)
[2017-06-01] MEDS ORDERED: VITAMIN D-31000 UNIT PO (12:34)
[2017-06-01] MEDS ORDERED: ALEVE220 MG PO (12:34)
[2017-06-01] MEDS ORDERED: LOSARTAN POTAS100 MG PO (12:34)
[2017-06-01] MEDS ORDERED: NAPROSYN250 MG PO (12:35)
== END 2017-05-07 12:10 | disposition home or self-care (01) ==
LOC: ED SRH 10:23
DX: K40.91 Unilateral inguinal hernia, without obstruction or gangrene, recurrent (principal); I10 Essential (primary) hypertension; Z79.899 Other long term (current) drug therapy; Z79.1 Long term (current) use of non-steroidal anti-inflammatories (NSAID); Z79.82 Long term (current) use of aspirin; Z88.6 Allergy status to analgesic agent

== ENCOUNTER 2017-05-28 13:29 | Emergency (ER) | payer OTHER ==
--- NOTE | 2017-05-28 14:54 | ED ORDER SUMMARY ---
..... Patient: AB CRUZ OrderSheet [facility] VisitID: [id number] [address] [place] [address] 42y, M Registration Date/Time: 05/28/2017 ORDER SHEET Weight: 90.7 kg (stated) Allergies: Ibuprofen GENERAL ORDERS: Ice (14:14 05/28/2017 Nadeem Olivia verbal order read back to Nadia Alcala) (14:14 Nadeem Olivia) MEDICATION ORDERS: IV FLUIDS: ORDER SHEET NOTES: [Electronically signed by Vishal Grover R.N. (15:13 05/28/2017)] [Electronically signed by Dasha Carreon P.A.-C (15:44 05/28/2017)] [Electronically locked/signed by Vishal Grover R.N. (15:13 05/28/2017)]
--- NOTE | 2017-05-28 14:54 | ED CLINICAL REPORT ---
Clinical Report - Physicians/Mid Levels [facility] [address] [place] [address] 05/28/2017 13:30 Patient: AB CRUZ Time Seen: 1430 May 28 2017. Arrived- By private vehicle. Historian- patient. HISTORY OF PRESENT ILLNESS Chief Complaint: ABDOMINAL PAIN. It is described as "pain" and it is described as located in the right pelvis. This started last night and is still present. The patient has had nausea. (Patient presents with right groin pain since last night worsening. Reports history of similar, with a hernia. He denies any heavy lifting or trauma. Denies any fevers or chills. He denies pain into his testicle. Denies any dysuria urgency or frequency. Denies any fevers. Denies any diarrhea or constipation.). REVIEW OF SYSTEMS No constipation, black stools, difficulty with urination, pain with urination or urinary frequency. No fever, sore throat, blurred vision, chest pain or difficulty breathing. All systems otherwise negative, except as recorded above. PAST HISTORY Problems: Lumbar Strain. Back Pain. Heart Murmur. Hypertension. Additional Surgeries: no known surgeries. Medications: ASA Oral 81mg daily . Lipitor Oral 100mg, daily. Naproxen Oral 500 mg, 2x a day as needed (uses 2-3 x/week ). Vit d. Allergies: Ibuprofen. (facial swelling (as a child) ). SOCIAL HISTORY Never smoker. Alcohol use. ADDITIONAL NOTES The nursing notes have been reviewed. PHYSICAL EXAM Vital Signs: 05/28/2017 13:50 BP: 133/79. HR: 58. RR: 16. O2 saturation: 98%. Temp: 98.3 F. Pain level now: 10/10. Appearance: Alert. Eyes: Eyes normal inspection. ENT: Ears normal. Neck: Normal inspection. No meningeal signs. CVS: Heart sounds normal. Respiratory: No respiratory distress. Breath sounds normal. No decreased air movement. Abdomen: Soft and nontender. Tenderness (r. inguinal). No rebound tenderness or distention. The bowel sounds are not abnormal. (Right inguinal area of swelling and bolus, which is easily reproduced in the ER, chaperoned exam with just an RN.). Skin: Skin warm. Neuro: Oriented X 3. PROGRESS AND PROCEDURES Course of Care: Patient with known hernia, awaiting surgery, reduced in the emergency department. No distress. Patient largely pain-free after reduction. No other complications. Patient is stable. Symptoms better. CLINICAL IMPRESSION Right inguinal hernia. INSTRUCTIONS Do not work today. (no lifting follow up with SURGEON as scheduled). (Electronically signed by Dasha Carreon P.A.-C 05/28/2017 15:44)
--- NOTE | 2017-05-28 14:54 | ED CLINICAL REPORT ---
Clinical Report - Physicians/Mid Levels [facility] [address] [place] [address] 05/28/2017 13:30 Patient: AB CRUZ Time Seen: 1430 May 28 2017. Arrived- By private vehicle. Historian- patient. HISTORY OF PRESENT ILLNESS Chief Complaint: ABDOMINAL PAIN. It is described as "pain" and it is described as located in the right pelvis. This started last night and is still present. The patient has had nausea. (Patient presents with right groin pain since last night worsening. Reports history of similar, with a hernia. He denies any heavy lifting or trauma. Denies any fevers or chills. He denies pain into his testicle. Denies any dysuria urgency or frequency. Denies any fevers. Denies any diarrhea or constipation.). REVIEW OF SYSTEMS No constipation, black stools, difficulty with urination, pain with urination or urinary frequency. No fever, sore throat, blurred vision, chest pain or difficulty breathing. All systems otherwise negative, except as recorded above. PAST HISTORY Problems: Lumbar Strain. Back Pain. Heart Murmur. Hypertension. Additional Surgeries: no known surgeries. Medications: ASA Oral 81mg daily . Lipitor Oral 100mg, daily. Naproxen Oral 500 mg, 2x a day as needed (uses 2-3 x/week ). Vit d. Allergies: Ibuprofen. (facial swelling (as a child) ). SOCIAL HISTORY Never smoker. Alcohol use. ADDITIONAL NOTES The nursing notes have been reviewed. PHYSICAL EXAM Vital Signs: 05/28/2017 13:50 BP: 133/79. HR: 58. RR: 16. O2 saturation: 98%. Temp: 98.3 F. Pain level now: 10/10. Appearance: Alert. Eyes: Eyes normal inspection. ENT: Ears normal. Neck: Normal inspection. No meningeal signs. CVS: Heart sounds normal. Respiratory: No respiratory distress. Breath sounds normal. No decreased air movement. Abdomen: Soft and nontender. Tenderness (r. inguinal). No rebound tenderness or distention. The bowel sounds are not abnormal. (Right inguinal area of swelling and bolus, which is easily reproduced in the ER, chaperoned exam with just an RN.). Skin: Skin warm. Neuro: Oriented X 3. PROGRESS AND PROCEDURES Course of Care: Patient with known hernia, awaiting surgery, reduced in the emergency department. No distress. Patient largely pain-free after reduction. No other complications. Patient is stable. Symptoms better. CLINICAL IMPRESSION Right inguinal hernia. INSTRUCTIONS Do not work today. (no lifting follow up with SURGEON as scheduled). (Electronically signed by Dasha Carreon P.A.-C 05/28/2017 15:44)
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
--- NOTE | 2017-05-28 14:54 | ED ORDER SUMMARY ---
..... Patient: AB CRUZ OrderSheet [facility] VisitID: [id number] [address] [place] [address] 42y, M Registration Date/Time: 05/28/2017 ORDER SHEET Weight: 90.7 kg (stated) Allergies: Ibuprofen GENERAL ORDERS: Ice (14:14 05/28/2017 Nadeem Olivia verbal order read back to Nadia Alcala) (14:14 Nadeem Olivia) MEDICATION ORDERS: IV FLUIDS: ORDER SHEET NOTES: [Electronically signed by Vishal Grover R.N. (15:13 05/28/2017)] [Electronically signed by Dasha Carreon P.A.-C (15:44 05/28/2017)] [Electronically locked/signed by Vishal Grover R.N. (15:13 05/28/2017)]
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
--- NOTE | 2017-05-28 15:45 | ED MAR SUMMARY ---
..... Medication Administration Record [facility] [address] [place], [place] [id number] Patient: ANTHONY AB G Visit ID: [id number] 42y, M Weight: 90.7 kg Height/Length: 64 in BMI: 34.3 ALLERGIES: Ibuprofen
--- NOTE | 2017-05-28 15:45 | ED DISCHARGE INSTRUCTIONS ---
Patient: AB CRUZ General Instructions [facility] VisitID: [id number] [place] [address] 42y, M Registration Date/Time: 05/28/2017 Right inguinal hernia. INSTRUCTIONS Do not work today. (no lifting follow up with SURGEON as scheduled). ADDITIONAL INFORMATION Hernia [Adult] A hernia is a bulge of the intestines or surrounding tissues through a tear in the muscle of the abdomen or groin. This may occur as a result of excessive coughing, heavy lifting or being overweight. It can also occur at the site of prior surgery. When a hernia first appears it may be painful due to stretching and tearing of the muscle fibers. When you lie down, the bulge should reduce in size or disappear completely. If it does not, and you are unable to flatten it with your hand, medical attention is needed at once. Home Care: Avoid heavy lifting and straining or any activities that cause pain in the hernia. Follow Up with your physician as directed by our staff. Get Prompt Medical Attention if any of the following occur: Increasing size of the hernia Increasing pain in the hernia A hernia that does not get smaller when you lie down Hardening of the hernia Abdominal swelling, fever or repeated vomiting Pain moves to the lower right abdomen (just below the waistline) or spreads to the back Hernia [Adult] A hernia is a bulge of the intestines or surrounding tissues through a tear in the muscle of the abdomen or groin. This may occur as a result of excessive coughing, heavy lifting or being overweight. It can also occur at the site of prior surgery. When a hernia first appears it may be painful due to stretching and tearing of the muscle fibers. When you lie down, the bulge should reduce in size or disappear completely. If it does not, and you are unable to flatten it with your hand, medical attention is needed at once. Home Care: Avoid heavy lifting and straining or any activities that cause pain in the hernia. Follow Up with your physician as directed by our staff. Get Prompt Medical Attention if any of the following occur: Increasing size of the hernia Increasing pain in the hernia A hernia that does not get smaller when you lie down Hardening of the hernia Abdominal swelling, fever or repeated vomiting Pain moves to the lower right abdomen (just below the waistline) or spreads to the back You have been given the following additional information: Hernia (Inguinal, Ventral, Umbilical) Hernia (Inguinal, Ventral, Umbilical) Do not work today. (Electronically signed by Dasha Carreon P.A.-C 05/28/2017 15:44)
--- NOTE | 2017-05-28 15:45 | ED MED RECONCILIATION SUMMARY ---
Patient: ANTHONY AB Sina Medication Reconciliation Report [facility] VisitID: [id number] [address] [place] [place] [address] 42y, M Registration Date/Time: 05/28/2017 Weight: 90.7 kg Height/Length: 64 in. BMI: 34.3 ALLERGIES: Ibuprofen The patient's Home Medications are listed below: THE FOLLOWING MEDICATIONS NEED TO BE RECONCILED: ASA Oral 81mg daily Lipitor Oral 100mg, daily Naproxen Oral 500 mg, 2x a day, uses 2-3 x/week Vit d The source(s) of the original Home Medication information: patient The following Medications were given to the patient in the Emergency Department: None. The following Medications were prescribed to the patient: None.
--- NOTE | 2017-05-28 15:45 | ED DISCHARGE INSTRUCTIONS ---
Patient: AB CRUZ General Instructions [facility] VisitID: [id number] [place] [address] 42y, M Registration Date/Time: 05/28/2017 Right inguinal hernia. INSTRUCTIONS Do not work today. (no lifting follow up with SURGEON as scheduled). ADDITIONAL INFORMATION Hernia [Adult] A hernia is a bulge of the intestines or surrounding tissues through a tear in the muscle of the abdomen or groin. This may occur as a result of excessive coughing, heavy lifting or being overweight. It can also occur at the site of prior surgery. When a hernia first appears it may be painful due to stretching and tearing of the muscle fibers. When you lie down, the bulge should reduce in size or disappear completely. If it does not, and you are unable to flatten it with your hand, medical attention is needed at once. Home Care: Avoid heavy lifting and straining or any activities that cause pain in the hernia. Follow Up with your physician as directed by our staff. Get Prompt Medical Attention if any of the following occur: Increasing size of the hernia Increasing pain in the hernia A hernia that does not get smaller when you lie down Hardening of the hernia Abdominal swelling, fever or repeated vomiting Pain moves to the lower right abdomen (just below the waistline) or spreads to the back Hernia [Adult] A hernia is a bulge of the intestines or surrounding tissues through a tear in the muscle of the abdomen or groin. This may occur as a result of excessive coughing, heavy lifting or being overweight. It can also occur at the site of prior surgery. When a hernia first appears it may be painful due to stretching and tearing of the muscle fibers. When you lie down, the bulge should reduce in size or disappear completely. If it does not, and you are unable to flatten it with your hand, medical attention is needed at once. Home Care: Avoid heavy lifting and straining or any activities that cause pain in the hernia. Follow Up with your physician as directed by our staff. Get Prompt Medical Attention if any of the following occur: Increasing size of the hernia Increasing pain in the hernia A hernia that does not get smaller when you lie down Hardening of the hernia Abdominal swelling, fever or repeated vomiting Pain moves to the lower right abdomen (just below the waistline) or spreads to the back You have been given the following additional information: Hernia (Inguinal, Ventral, Umbilical) Hernia (Inguinal, Ventral, Umbilical) Do not work today. (Electronically signed by Dasha Carreon P.A.-C 05/28/2017 15:44)
--- NOTE | 2017-05-28 15:45 | ED MED RECONCILIATION SUMMARY ---
Patient: ANTHONY AB Sina Medication Reconciliation Report [facility] VisitID: [id number] [address] [place] [address] 42y, M Registration Date/Time: 05/28/2017 Weight: 90.7 kg Height/Length: 64 in. BMI: 34.3 ALLERGIES: Ibuprofen The patient's Home Medications are listed below: THE FOLLOWING MEDICATIONS NEED TO BE RECONCILED: ASA Oral 81mg daily Lipitor Oral 100mg, daily Naproxen Oral 500 mg, 2x a day, uses 2-3 x/week Vit d The source(s) of the original Home Medication information: patient The following Medications were given to the patient in the Emergency Department: None. The following Medications were prescribed to the patient: None.
--- NOTE | 2017-05-28 15:45 | ED MAR SUMMARY ---
..... Medication Administration Record [facility] [address], [place] [id number] Patient: ANTHONY AB G Visit ID: [id number] 42y, M Weight: 90.7 kg Height/Length: 64 in BMI: 34.3 ALLERGIES: Ibuprofen
[2017-06-01] MEDS ORDERED: ASPIRIN ADULT L81 M1 PO (12:33)
[2017-06-01] MEDS ORDERED: ALEVE220 MG PO (12:34)
[2017-06-01] MEDS ORDERED: VITAMIN D-31000 UNIT PO (12:34)
[2017-06-01] MEDS ORDERED: LOSARTAN POTAS100 MG PO (12:34)
[2017-06-01] MEDS ORDERED: NAPROSYN250 MG PO (12:35)
== END 2017-05-28 15:11 | disposition home or self-care (01) ==
LOC: ED SRH 13:29
DX: K40.90 Unilateral inguinal hernia, without obstruction or gangrene, not specified as recurrent (principal); I10 Essential (primary) hypertension; Z79.82 Long term (current) use of aspirin; Z79.899 Other long term (current) drug therapy; Z88.6 Allergy status to analgesic agent